=== PATIENT | male | born 1995 ===

== ENCOUNTER 2021-03-11 10:21 | Emergency (ER) | payer SELFPAY ==
[2021-03-11 10:30] VITALS: BP 141/87
[2021-03-11] MEDS ORDERED: ACETAMINOPHEN 325 MG TAB PO ONE (10:40)
--- NOTE | 2021-03-11 10:47 | Emergency Department Report ---
<SHIRA CASH - Last Filed: 03/11/21 20:04> - General Chief Complaint: Upper Respiratory Infection Stated Complaint: COVID+ Time Seen by Provider: 03/11/21 10:34 Source: patient Mode of arrival: Ambulatory Limitations: No Limitations - History of Present Illness Initial Comments: 25-year-old -Malaysian male with a past medical history of asthma presents to the ER today with complaints of cough and fever. Patient states that his symptoms started about 5 days ago. He states that he was diagnosed COVID-19 positive this past Tuesday. Patient states that he has been having URI symptoms, and generalized body aches with associated cough and fever. He states that the generalized body aches and majority of the URI symptoms are improving but he still continues to have this persistent productive cough and continues to have fever. Highest measured temperature was 103. He has been taking ibuprofen for the fever. He reports shortness of breath only when he has a coughing spell but other than that he denies shortness of breath at rest or on exertion. He denies any associated wheezing or chest pain. Patient states that he has been out of his albuterol MDI "for a while". He states that has never been hospitalized for his asthma in the past. He does not smoke. He denies any other significant past medical history. MD Complaint: cough -: Gradual, days(s) (5) - Related Data Previous Rx's Medication Instructions Recorded Last Taken Type Albuterol Mdi (or & Nicu Only) 2 puff IH QID PRN #8.5 gram 03/11/21 Unknown Rx [ProAir HFA Inhaler] Azithromycin [Zithromax Z-KHOA] 250 mg PO DAILY #1 pack 03/11/21 Unknown Rx Benzonatate [Tessalon Perles] 100 mg PO Q8HR #30 capsule 03/11/21 Unknown Rx dexAMETHasone [Decadron] 4 mg PO ONCE #5 tablet 03/11/21 Unknown Rx Allergies Allergy/AdvReac Type Severity Reaction Status Date / Time No Known Allergies Allergy Unverified 03/11/21 10:26 ED Review of Systems Comment: All other systems reviewed and negative Constitutional: denies: chills, fever Eyes: denies: eye pain, eye discharge, vision change ENT: denies: ear pain, throat pain, dental pain, hearing loss, epistaxis, congestion Respiratory: cough, shortness of breath (When coughing). denies: orthopnea, SOB with exertion, SOB at rest, wheezing Cardiovascular: denies: chest pain, palpitations, dyspnea on exertion, edema, syncope Endocrine: no symptoms reported Gastrointestinal: denies: abdominal pain, nausea, diarrhea, constipation, hematemesis, hematochezia Genitourinary: denies: urgency, dysuria, frequency, hematuria, discharge, testicular pain, testicular mass Musculoskeletal: denies: back pain, joint swelling, arthralgia, myalgia Skin: denies: rash, lesions, change in color, change in hair/nails, pruritus Neurological: denies: headache, weakness, numbness, paresthesias, confusion, abnormal gait, vertigo Psychiatric: denies: anxiety, depression, auditory hallucinations, visual hallucinations, homicidal thoughts, suicidal thoughts Hematological/Lymphatic: denies: easy bleeding, easy bruising ED Past Medical Hx - Past Medical History Hx Asthma: Yes - Surgical History Past Surgical History?: No - Social History Smoking Status: Never Smoker Substance Use Type: Alcohol - Medications Home Medications: Home Medications Medication Instructions Recorded Confirmed Last Taken Type Albuterol Mdi (or & Nicu Only) 2 puff IH QID PRN #8.5 gram 03/11/21 Unknown Rx [ProAir HFA Inhaler] Azithromycin [Zithromax Z-KHOA] 250 mg PO DAILY #1 pack 03/11/21 Unknown Rx Benzonatate [Tessalon Perles] 100 mg PO Q8HR #30 capsule 03/11/21 Unknown Rx dexAMETHasone [Decadron] 4 mg PO ONCE #5 tablet 03/11/21 Unknown Rx ED Physical Exam - General Limitations: No Limitations General appearance: alert, in no apparent distress - Head Head exam: Present: atraumatic, normocephalic, normal inspection - Eye Eye exam: Present: normal appearance, PERRL, EOMI Pupils: Present: normal accommodation - Neck Neck exam: Present: normal inspection, full ROM. Absent: meningismus - Respiratory Respiratory exam: Present: normal lung sounds bilaterally. Absent: respiratory distress, wheezes, rales, rhonchi - Cardiovascular Cardiovascular Exam: Present: regular rate, normal rhythm, normal heart sounds - GI/Abdominal GI/Abdominal exam: Present: soft. Absent: distended, tenderness, guarding, rebound - Neurological Exam Neurological exam: Present: alert, oriented X3, CN II-XII intact, normal gait - Psychiatric Psychiatric exam: Present: normal affect, normal mood - Skin Skin exam: Present: intact ED Medical Decision Making - Radiology Data Radiology results: report reviewed Patient: KARMEN GAMEZ MR#: [id number] 31 : 1995 Acct:[id number] Age/Sex: 25 / M ADM Date: 03/11/21 Loc: ED Attending Dr: Ordering Physician: SHIRA CASH Date of Service: 03/11/21 Procedure(s): XR chest routine 2V Accession Number(s): [id number] cc: SHIRA CASH Fluoro Time In Minutes: CHEST 2 VIEWS INDICATION / CLINICAL INFORMATION: COUGH/ +covid. COMPARISON: None available. FINDINGS: SUPPORT DEVICES: None. HEART / MEDIASTINUM: No significant abnormality. LUNGS / PLEURA: There are generalized bilateral airspace opacities. No significant pleural effusion. No pneumothorax. ADDITIONAL FINDINGS: No significant additional findings. IMPRESSION: Bilateral pneumonia. Continued radiographic follow-up to resolution is recommended. Signer Name: Awais Sosa MD Signed: 03/11/2021 11:27 AM Workstation Name: [id number] Transcribed By: MN Dictated By: Awais Sosa MD Electronically Authenticated By: Awais Sosa MD Signed Date/Time: 03/11/211126 DD/ 25 TD/TT: - Medical Decision Making Chest x-ray reviewed -Bilateral pneumonia. Continued radiographic follow-up to resolution is recommended. Repeat vital signs after oral medications and shows improvement and patient now has a temp of 97.9, respiratory rate of 17, heart rate of 62, and pulse ox on room air is 98%. He was ambulated in the ER and maintaining pulse ox 97% and he had no complaints of shortness of breath. Patient room playing on his phone. He is not in any acute pain or respiratory distress. He is not toxic or ill- appearing. Discussed x-ray results with patient, informed him that his x-ray results could be related to Covid pneumonia but he will be given a prescription for antibiotics to cover possible bacterial source, he will also be started on Decadron, albuterol inhaler and Tessalon Perles for cough. I recommend that he follows up with his primary care doctor closely but if his symptoms changes or worsens in any way that he needs to return to the ER. ED Disposition Clinical Impression: Pneumonia, Suspected COVID-19 virus infection Disposition: DC-01 TO HOME OR SELFCARE Is pt being admited?: No Does the pt Need Aspirin: No Condition: Stable Instructions: COVID-19, Pneumonitis, Community-Acquired Pneumonia, Adult, [id number], Bacterial Pneumonia (ED) Additional Instructions: Recommend that he take the Z-Khoa, the Decadron, and the Tessalon Perles as prescribed. Use albuterol inhaler as prescribed and as discussed. I recommend that you continue to quarantine for protocol. Drink lots of fluids. Recommend that you take a multivitamin that includes vitamin C, zinc and vitamin D. I recommend that you continue to check your temperature and you can alternate Tylenol every 4 hours ibuprofen to help for fever and or any pain. Follow-up closely with your PCP. Return to the ER if your symptoms changes or worsens in any way. Prescriptions: dexAMETHasone [Decadron] 4 mg PO ONCE #5 tablet Albuterol Mdi (or & Nicu Only) [ProAir HFA Inhaler] 2 puff IH QID PRN #8.5 gram PRN Reason: Shortness Of Breath Benzonatate [Tessalon Perles] 100 mg PO Q8HR #30 capsule Azithromycin [Zithromax Z-KHOA] 250 mg PO DAILY #1 pack Referrals: [facility] [Provider Group] - 3-5 Days Time of Disposition: 13:10 <KALPANA NEW - Last Filed: 03/12/21 15:44> ED Review of Systems ROS: Stated complaint: COVID+ Other details as noted in HPI ED Course Vital Signs 03/11/21 10:27 Temperature 100.4 F H Pulse Rate 100 H Respiratory 24 Rate Blood Pressure 141/87 O2 Sat by Pulse 94 Oximetry - Reevaluation(s) Reevaluation #1: 03/12/21 15:41 I spoke to the patient at 3:40 PM on 03/12/2021 to check on how he is doing and he stated that he is feeling much better compared to yesterday. I stressed the importance of following up with a doctor to ensure resolution of his pneumonia as well as following quarantine protocol. I also advised the patient to have someone purchase him a pulse oximeter to measure his oxygen saturation and to come back to the hospital should his oxygen saturations drop below 93%. I also encouraged him to return to the hospital should his symptoms worsen or should he develop any other concerns. Critical care attestation.: If time is entered above; I have spent that time in minutes in the direct care of this critically ill patient, excluding procedure time. ED Disposition Is pt being admited?: No
--- NOTE | 2021-03-11 11:31 | XRay Report ---
CHEST 2 VIEWS INDICATION / CLINICAL INFORMATION: COUGH/ +covid. COMPARISON: None available. FINDINGS: SUPPORT DEVICES: None. HEART / MEDIASTINUM: No significant abnormality. LUNGS / PLEURA: There are generalized bilateral airspace opacities. No significant pleural effusion. No pneumothorax. ADDITIONAL FINDINGS: No significant additional findings. IMPRESSION: Bilateral pneumonia. Continued radiographic follow-up to resolution is recommended. Signer Name: Awais Sosa MD Signed: 03/11/2021 11:27 AM Workstation Name: [id number]
== END 2021-03-11 13:30 | disposition home or self-care (01) ==
LOC: ED 10:21
DX: J18.9 Pneumonia, unspecified organism (principal)
CPT/HCPCS: 71046; 99283

== ENCOUNTER 2021-03-12 19:44 | Emergency (ER) | payer SELFPAY ==
[2021-03-12] MEDS ORDERED: SODIUM CHLORIDE 0.9% 500 ML 500 ML IV ONE (22:12)
[2021-03-12 22:13] VITALS: BP 148/80
[2021-03-12] MEDS ORDERED: ACETAMINOPHEN 500 MG TAB PO ONE (22:44)
[2021-03-12 23:02] LABS: Bilirubin,Urine NEG (Negative); Blood,Urine MOD (Negative); Color,Urine Yellow (Yellow); Mucus,Urine FEW /HPF; RBC,Urine < 1.0 /HPF (0.0-6.0); Urobilinogen,Urine < 2.0 mg/dL (<2.0)
[2021-03-12 23:55] LABS: Basophils % (Auto) 0.2 % (0.0-1.8); Hematocrit 47.8 % (35.5-45.6); Hemoglobin 16.1 gm/dl (11.8-15.2); Lymphocytes % (Auto) 15.2 % (13.4-35.0); Mean Corpuscular HGB Conc 34 % (32-34); Mean Corpuscular Volume 90 fl (84-94); Monocytes # (Auto) 0.3 K/mm3 (0.0-0.8); Platelet Count 160 K/mm3 (140-440); Red Cell Distribution Width 13.4 % (13.2-15.2)
[2021-03-13 00:13] LABS: INR 0.87 (0.87-1.13)
--- NOTE | 2021-03-13 00:14 | XRay Report ---
CHEST 1 VIEW 03/12/2021 10:49 PM INDICATION / CLINICAL INFORMATION: possible Sepsis. Cough, fever, new loss of smell, us, body aches, diarrhea, n.v. Covid positive. COMPARISON: 03/11/21 FINDINGS: SUPPORT DEVICES: None. HEART / MEDIASTINUM: No significant abnormality. LUNGS / PLEURA: Patchy bilateral pulmonary opacities are unchanged. No pneumothorax. ADDITIONAL FINDINGS: No significant additional findings. IMPRESSION: 1. No change in patchy bilateral pneumonia. Atypical/viral pneumonia such as Covid should be consider ed. Signer Name: Ghanshyam Alcala MD Signed: 03/13/2021 12:10 AM Workstation Name: [id number]
[2021-03-13 00:23] LABS: Alanine Aminotransferase 89 units/L (7-56); Albumin 4.3 g/dL (3.9-5); BUN/Creatinine Ratio 13; Blood Urea Nitrogen 15 mg/dL (9-20); Calcium 8.5 mg/dL (8.4-10.2); Hemolysis Index 18
== END 2021-03-12 23:00 | disposition left against medical advice (07) ==
LOC: ED 19:44
DX: R06.00 Dyspnea, unspecified (principal); Z53.21 Procedure and treatment not carried out due to patient leaving prior to being seen by health care provider
CPT/HCPCS: 36415; 71045; 80053; 81001; 82140; 82805; 85025; 85610; 87040; 87086